=== PATIENT | male | born 1985 | race Caucasian/White ===

== ENCOUNTER 2024-05-04 12:15 | Emergency (ER) | payer OTHER ==
[~2024-05-04] VITALS: Ht 182.9 cm; Wt 113.0 kg
[2024-05-04 12:50] VITALS: O2SAT 98
[2024-05-04 15:02] LABS: BASOPHILS % 0.2 % (0.0-2.0); EOSINOPHILS % 2.7 % (0.0-5.0); HEMATOCRIT. 46.9 % (42.0-52.0); HEMOGLOBIN. 15.1 g/dL (14.0-18.0); LYMPHOCYTES % 22.8 % (20.0-50.0); MEAN CORPUSCULAR HEMOGLOBIN 27.6 pg (28.0-32.0); MEAN CORPUSCULAR HGB CONC 32.3 g/dL (31.0-37.0); MEAN CORPUSCULAR VOLUME 85.6 fL (80.0-94.0); MEAN PLATELET VOLUME 9.5 fl (7.4-10.4); NEUTROPHILS % 65.3 % (40.0-76.0); PLATELET 225 x1000/uL (130-400); RED BLOOD CELL COUNT 5.47 mill/uL (4.7-6.1); RED CELL DISTRIBUTION WIDTH 12.6 % (11.6-14.6); WHITE BLOOD COUNT 13.7 x1000/uL (4.5-11.0)
[2024-05-04 15:06] LABS: CHLORIDE 106 mEq/L (98-107); POTASSIUM 3.8 mEq/L (3.5-5.1); SODIUM 139 mEq/L (136-145)
[2024-05-04 15:07] LABS: CALCIUM 9.2 mg/dL (8.7-10.4); CARBON DIOXIDE 25 mEq/L (21-32)
[2024-05-04 15:12] LABS: CREATININE 1.1 mg/dL (0.6-1.3); GLUCOSE 94 mg/dL (70-105); UREA NITROGEN BLOOD 13 mg/dL (9-23)
[2024-05-04 15:14] LABS: ALANINE AMINOTRANSFERASE 32 IU/L (10-49); ALBUMIN 4.3 g/dL (3.2-4.8); ASPARTATE AMINOTRANSFERASE 17 IU/L (<34); BILIRUBIN DIRECT 0.3 mg/dL (<=3.0)
[2024-05-04 18:30] VITALS: TEMP 36.44736; O2SAT 98
[2024-05-04 18:31] VITALS: BP 138/89; PULSE 88; RESP 18
[2024-05-04] MEDS: IBUPROFEN 600MG TABLET PO ONE (18:31)
[2024-05-04] MEDS ORDERED: IBUP-2029 MT (18:32)
[2024-05-04] MEDS ORDERED: AMOX1TAB16 MT (18:32)
[2024-05-04] MEDS ORDERED: IOHEXOL-300 100 ML BOTTLE ONE (21:50)
== END 2024-05-04 19:24 | disposition home or self-care (01) ==
LOC: ER 12:15
DX: K57.32 Diverticulitis of large intestine without perforation or abscess without bleeding (principal); N43.3 Hydrocele, unspecified
CPT/HCPCS: 80076; 80048; 83690; 85025; 36415; 74177; 93976; 76870; 99285; Q9967; Z7610